=== PATIENT | female | born 1945 | race Caucasian/White ===

== ENCOUNTER 2016-12-19 06:17 | Inpatient (IN) | payer OTHER, BC ==
[2016-12-13 11:35] VITALS: BMI 38.4
[~2016-12-19 06:17] MED LIST: PANTOPRAZOLE 40 MG TABLET (FP) PO ONE
[2016-12-19] MEDS ORDERED: GABAPENTIN 300 MG CAPSULE (FP) PO ONE (06:30)
[2016-12-19] MEDS ORDERED: ROPIVICAINE 0.2%/MORPH PF/KETOROLAC - 51ML DISP.SYRINGE IA ONE ×4 (06:30→12:09)
[2016-12-19] MEDS ORDERED: TRANEXAMIC ACID 1000 MG/10 ML VIAL IVPUSH ONE (06:30)
[2016-12-19] MEDS ORDERED: oxyCODONE HCL 10 MG SUSTAINED ACTING TABLET PO ONE (06:30)
[2016-12-19] MEDS ORDERED: CEFAZOLIN 2 GM in DEXTROSE 5%-WATER - 50 ML IVPB ONE (06:30)
[2016-12-19] MEDS ORDERED: CELECOXIB 200 MG CAPSULE PO ONE (06:30)
[2016-12-19] MEDS ORDERED: PANTOPRAZOLE 40 MG TABLET (FP) ONE (06:32)
[2016-12-19] MEDS ORDERED: ceFAZolin SODIUM 1 GM VIAL ONE (07:13)
[2016-12-19] MEDS ORDERED: VANCOMYCIN 1,000 MG VIAL (RESTRICTED TO ID ONLY) ONE (07:13)
[2016-12-19] MEDS ORDERED: BUPIVACAINE HCL/PF 2.5 MG/ML - 30 ML VIAL IJ ONE (07:29)
[2016-12-19] MEDS ORDERED: MIDAZOLAM HCL 2 MG/2 ML SINGLE DOSE VIAL ONE (07:29)
[2016-12-19] MEDS ORDERED: DEXAMETHASONE SOD PHOSPHATE/PF 10 MG/ML SDV ONE (07:29)
--- NOTE | 2016-12-19 07:54 | HP ---
Admitting History and Physical - Admission Chief Complaint: right knee OA History of Present Illness: 71yo female with right knee OA. Had right ARMINDA last year and did well. PT after hip replacement was limited by knee pain from arthritis. Was treated with NSAIDs and injections but continued to have pain and ambulatory dysfunction. Indicated for right TKA. History Source: Patient, Medical Record Limitations to Obtaining History: No Limitations - Past Medical History ...: No Endocrine: Yes: Hypothyroidism - Past Surgical History Past Surgical History: Yes: Joint Replacement - Smoking History Smoking history: Former smoker Have you smoked in the past 12 months: No If you are a former smoker, when did you quit?: 25 YEARS AGO - Alcohol/Substance Use Hx Alcohol Use: No - Social History ADL: Independent Home Medications - Allergies Allergies/Adverse Reactions: Allergies Allergy/AdvReac Type Severity Reaction Status Date / Time Penicillins Allergy Severe UNKNOWN- Verified 12/13/16 11:27 A CHILD shellfish derived Allergy Severe Swelling Verified 12/13/16 11:27 procaine HCl [From Novocain] AdvReac Severe PALPITATION Verified 12/19/16 07:12 S - Home Medications Home Medications: Ambulatory Orders Thyyrostim 1 tab PO DAILY 01/04/16 Multivitamins [Multivit ([facility] Formulary)] 1 tab PO DAILY 01/22/16 Cholecalciferol (Vitamin D3) [Vitamin D3 -] 1,000 unit PO DAILY 12/19/16 Ciprofloxacin HCl [Cipro] 500 mg PO BID 12/19/16 Magnesium 250 mg PO DAILY 12/19/16 Mv, Min #36/Iron,Carbonyl/FA [Geritol Complete Tablet] 1 each PO ASDIR 12/19/16 Physical Examination Vital Signs: Vital Signs Temperature 98 F 12/19/16 06:58 Pulse Rate 80 12/19/16 06:58 Respiratory Rate 18 12/19/16 06:58 Blood Pressure 132/82 12/19/16 06:58 O2 Sat by Pulse Oximetry (%) Constitutional: Yes: Well Nourished, No Distress Eyes: Yes: WNL, Conjunctiva Clear, EOM Intact HENT: Yes: WNL, Atraumatic, Normocephalic Neck: Yes: WNL Cardiovascular: Yes: WNL, Regular Rate and Rhythm Respiratory: Yes: WNL, Regular Gastrointestinal: Yes: WNL, Soft ...Rectal Exam: Yes: Deferred Renal/: Yes: WNL Musculoskeletal: Yes: Joint Stiffness, Joint Swelling Extremities: Yes: WNL Edema: No Peripheral Pulses WNL: Yes Integumentary: Yes: WNL Neurological: Yes: WNL, Alert, Oriented ...Motor Strength: WNL Psychiatric: Yes: WNL, Alert, Oriented Labs: Reviewed in chart Imaging - Results X-ray: Image Reviewed Problem List - Problems (1) Osteoarthritis of right knee Code(s): M17.11 - UNILATERAL PRIMARY OSTEOARTHRITIS, RIGHT KNEE Qualifiers: Osteoarthritis type: primary Qualified Code(s): M17.11 - Unilateral primary osteoarthritis, right knee Assessment/Plan 71yo female with severe right knee OA for right TKA
[2016-12-19] MEDS ORDERED: ONDANSETRON 4 MG/2 ML VIAL ONE (08:02)
[2016-12-19] MEDS ORDERED: PROPOFOL 20 ML ONE ×4 (08:02→11:46)
[2016-12-19] MEDS ORDERED: TRANEXAMIC ACID 1000 MG/10 ML VIAL ONE (08:02)
[2016-12-19] MEDS ORDERED: DEXAMETHASONE SOD PHOSPHATE 4 MG/1 ML VIAL ONE (08:02)
[2016-12-19] MEDS ORDERED: BUPIVACAINE HCL/PF 0.5% (5MG/ML) 10 ML VIAL ONE (08:04)
[2016-12-19] MEDS ORDERED: CIPROFLOXACIN 400 MG/D5W 200 ML IVPB ONE (08:10)
[2016-12-19] MEDS ORDERED: ePHEDrine SULFATE 50 MG/1 ML AMPULE ONE (09:53)
[2016-12-19] MEDS ORDERED: TRANEXAMIC ACID 1000 MG/10 ML VIAL IVPB ONE ×2 (10:05→11:47)
[2016-12-19] MEDS ORDERED: VANCOMYCIN 1,000 MG VIAL (RESTRICTED TO ID ONLY) IVPB ONE ×2 (10:11→11:47)
--- NOTE | 2016-12-19 12:41 | OP ---
Operative Note - Note: Operative Date: 12/19/16 Pre-Operative Diagnosis: right knee OA Operation: right TKA Post-Operative Diagnosis: Same as Pre-op Surgeon: Get Martini Tube Machine Operator Helper: Maryanne Bergeron Anesthesia: Spinal Estimated Blood Loss (mls): 100
[2016-12-19] MEDS ORDERED: MAG HYDROX/AL HYDROX/SIMETH 30 ML UNIT-DOSE CUP PO PRN (12:47)
[2016-12-19] MEDS ORDERED: MAGNESIUM HYDROX 2400MG/30ML ORAL SUSPENSION 30 ML CUP PO PRN (12:47)
[2016-12-19] MEDS ORDERED: ONDANSETRON 4 MG/2 ML VIAL IVPB PRN (12:47)
[2016-12-19] MEDS ORDERED: PROMETHAZINE HCL 25 MG/1 ML VIAL IVPUSH PRN (12:49)
[2016-12-19] MEDS ORDERED: oxyCODONE HCL 5 MG TABLET PO PRN ×2 (12:49)
[2016-12-19] MEDS ORDERED: ONDANSETRON 4 MG/2 ML VIAL IVPUSH PRN (12:49)
[2016-12-19] MEDS ORDERED: LACTATED RINGERS SOLUTION 1,000 ML IV SCH (13:00)
[2016-12-19] MEDS ORDERED: traMADol HCL 50 MG TABLET PO SCH (13:00)
[2016-12-19] MEDS: ACETAMINOPHEN 1000 MG/100 ML VIAL (NON FORMULARY) IVPB ONE ×2 (13:00→16:24)
[2016-12-19] MEDS ORDERED: KETOROLAC TROMETHAMINE 30 MG/1 ML VIAL IVPUSH SCH (13:00)
--- NOTE | 2016-12-19 13:14 | SPEC ---
DATE OF OPERATION: 12/18/2016 PREOPERATIVE DIAGNOSIS: Right knee osteoarthritis. POSTOPERATIVE DIAGNOSIS: Right knee osteoarthritis. PROCEDURE: Right total knee replacement. ATTENDING: Rahat Razo MD SPUN PASTE MACHINE OPERATOR: CAITLIN Ruvalcaba ANESTHESIA: Spinal plus sedation. ESTIMATED BLOOD LOSS: 100 mL. COMPLICATIONS: None. SPECIMENS SENT: Resected bone was sent for pathology analysis. DISPOSITION: The patient was transferred to the PACU in stable condition. IMPLANTS USED: Tristen Triathlon size 4 femoral component, size 5 tibial component. Because bone quality was found to be soft, a 50-mm stem was placed on both the femoral and tibial components, 11-mm total polyethylene components, 32-mm patellar component. INDICATIONS: This is a 71-year-old female who is a longstanding patient of mine who had a history of right total knee replacement 1 year ago. The patient also had right knee osteoarthritis and was treated conservatively with medications, injection, and physical therapy. The knee continued to be painful and was limiting her rehabilitation of her hip replacement. Because of her ambulatory dysfunction, she was indicated for a total knee replacement. The risks, benefits, and alternatives to the procedure were explained to the patient in great detail, and she elected to proceed with the surgery. DESCRIPTION OF PROCEDURE: On the day of surgery, the patient was taken to the operating room and placed on the OR table. Spinal anesthesia was administered by the anesthesiologist. The patient was then positioned supine on the table and all bony prominences were padded. A nonsterile tourniquet was placed on the proximal thigh. The knee was then prepped and draped in the usual sterile fashion and intravenous antibiotics were given for infection prophylaxis. A surgical time-out was then performed with the team, and the patients identity, procedure, side, availability of implants, and the administration of antibiotics was confirmed. The leg was then elevated and exsanguinated, and the tourniquet was inflated. With the knee flexed, a midline incision was made and carried down through the subcutaneous fat to the underlying retinaculum. A medial parapatellar arthrotomy was performed. This was followed by a subperiosteal dissection of the tissue off the proximal, medial tibia. A portion of fat pad was removed from under the patellar tendon, and a small portion of fat was excised off the distal supracondylar femur. The knee was then flexed further and the anterior horn of the lateral meniscus was released from the midline. Next, the anterior and posterior cruciate ligaments were transected. Osteophytes were removed from both the femur and tibia. Grade 4 changes were noted diffusely throughout the knee. Hohmann retractors were then placed around the distal femur. The starting drill was used to enter the intramedullary canal. The starting point had been chosen by checking the radiographs and anatomy. Proper alignment and intramedullary placement was then confirmed by placing the long narrow janet into the femur. Next, the distal femoral cutting guide was adjusted to 6 degrees of valgus and pinned to the femur. The bone resection was assessed using an caleb-wing. An approximately 10mm distal cut was made and the cut pieces measured. Once this was complete, the sizing guide was used to determine which size femoral component should be used. Next, the appropriately sized 4-in-1 cutting block was then placed at the correct amount of external rotation and the caleb wing was used to assure that there would be no notching of the anterior cortex of the femur. Once this was done, Hohmann retractors were used to protect the medial and lateral collateral ligaments, and all appropriate bone cuts were made. After bone cuts were made, the trabecular bone quality was found to be very soft and easily deformable. For this reason, we opted to use Triathlon TS components and place a short stem on both the femoral and tibial components for additional fixation strength. Attention was then turned to the tibia. Hohmann retractors were used to translate the tibia anteriorly and protect the collateral ligaments. The medial and lateral menisci were removed. The extramedullary tibial alignment guide was then placed and adjusted for rotation, varus/valgus, and slope. The height of the cutting block was adjusted to the level of the desired bone resection and then pinned in place. The proximal tibia was then cut with a saw and the bone was removed and measured. Once this was completed, trial components were placed and the knee was taken through a full range of motion. Soft tissue balance was assessed in both flexion and extension and found to be appropriate. The knee was stable throughout the full range of motion. The knee was then put into extension and the patella everted. The synovium around the patella was circumscribed with electrocautery. A caliper was used to measure the patellar thickness and a saw was then used to resect the patella at the chondro-osseous junction. The cut surface was then sized and drilled for the appropriate patellar button, with care taken to medialize it. A trial patella was then placed and the knee was again taken through a full range of motion. The knee was found to have both good balance and good patellar tracking. All of the components were removed except the tibial base plate. The appropriate instrumentation was used to drill and punch the proximal tibia for the keel of the final component. All bony surfaces were then cleaned with pulsatile lavage and dried. Bone cement was then prepared on the back table, and final components were cemented in place in the usual fashion. After final components were placed, a 3-minute dilute Betadine lavage was performed according to the [place] protocol. Following this, the wound was thoroughly irrigated with normal saline via pulsatile lavage, and wound closure was begun. Extruded cement was removed. The polyethylene trial was placed, the knee was put into extension, and axial pressure was applied for compression while the cement hardened. The patellar button was similarly cemented into place. Once the cement had hardened, the knee was taken through a full range of motion to assess stability, balance, and patellar tracking. This was found to be optimal and the trial polyethylene was exchanged for the appropriately sized real implant. The wound was then thoroughly irrigated with normal saline. No. 1 Polysorb and 0 VLoc 180 barbed sutures were used to close the arthrotomy. No. 1 Polysorb and 2-0 Polysorb sutures were used in the subcutaneous tissues. The skin was closed using both 3-0 VLoc 90 suture in a running subcuticular fashion and SwiftSet skin adhesive. Once this was completed a sterile Aquacel dressing and compressive Kannan-wrap was applied. The tourniquet was then deflated and the patient was awakened and taken to the PACU in stable condition. RAHAT RAZO M.D. [id number]
[2016-12-19] MEDS: LACTATED RINGERS SOLUTION 1,000 ML IV SCH (16:25)
[2016-12-19] MEDS: CEFAZOLIN 2 GM/D5W 50 ML IVPB SCH (18:15)
[2016-12-19] MEDS: KETOROLAC TROMETHAMINE 30 MG/1 ML VIAL IVPUSH SCH (20:24)
[2016-12-19] MEDS: ACETAMINOPHEN 325 MG TABLET (FP) PO SCH (20:25)
[2016-12-19] MEDS: traMADol HCL 50 MG TABLET PO SCH (20:26)
[2016-12-19] MEDS: ASCORBIC ACID 500 MG TABLET (FP) PO SCH (21:33)
[2016-12-19] MEDS: CELECOXIB 200 MG CAPSULE PO SCH (21:33)
[2016-12-19] MEDS: CIPROFLOXACIN 250 MG TABLET (RESTRICTED TO ID) PO SCH (21:33)
[2016-12-19] MEDS: SENNOSIDES/DOCUSATE COMBO (SENNA PLUS) TABLET (UD) PO SCH (21:33)
[2016-12-19] MEDS: oxyCODONE HCL 10 MG SUSTAINED ACTING TABLET PO SCH (21:34)
[2016-12-19] MEDS: GABAPENTIN 300 MG CAPSULE (FP) PO SCH (21:34)
[2016-12-20] MEDS: KETOROLAC TROMETHAMINE 30 MG/1 ML VIAL IVPUSH SCH ×2 (01:31→09:00)
[2016-12-20] MEDS: ACETAMINOPHEN 325 MG TABLET (FP) PO SCH ×4 (01:33→21:48)
[2016-12-20] MEDS: traMADol HCL 50 MG TABLET PO SCH ×4 (01:33→21:47)
[2016-12-20] MEDS: CEFAZOLIN 2 GM/D5W 50 ML IVPB SCH (01:34)
[2016-12-20 07:40] LABS: MCH 29.3 pg (25.7-33.7); MCHC 33.4 g/dl (32.0-36.0); MEAN CELL VOLUME 87.8 fl (80-96); MEAN PLT VOLUME 7.9 fl (7.5-11.1); PLATELET COUNT 241 K/MM3 (134-434); RDW 12.3 % (11.6-15.6); WHITE BLOOD COUNT 13.1 K/mm3 (4.0-10.8)
[2016-12-20 08:20] LABS: ANION GAP 7 (8-16); CALCIUM 8.7 mg/dl (8.4-10.2); CO2 26 mmol/L (22-28); CREATININE 0.7 mg/dl (0.6-1.3); GLUCOSE,RANDOM 127 mg/dl (74-106)
[2016-12-20] MEDS: ASPIRIN 325 MG TABLET PO SCH (08:56)
[2016-12-20] MEDS: PANTOPRAZOLE 40 MG TABLET (FP) PO SCH (09:01)
[2016-12-20] MEDS: GABAPENTIN 300 MG CAPSULE (FP) PO SCH ×2 (09:01→21:47)
[2016-12-20] MEDS: oxyCODONE HCL 10 MG SUSTAINED ACTING TABLET PO SCH ×2 (09:01→21:46)
[2016-12-20] MEDS: SENNOSIDES/DOCUSATE COMBO (SENNA PLUS) TABLET (UD) PO SCH ×2 (09:01→21:47)
[2016-12-20] MEDS: CELECOXIB 200 MG CAPSULE PO SCH ×2 (09:01→21:47)
[2016-12-20] MEDS: MULTIVITAMINS (DAILY MVI) TABLET (FP) PO SCH (09:02)
[2016-12-20] MEDS: ASCORBIC ACID 500 MG TABLET (FP) PO SCH ×2 (09:02→21:47)
[2016-12-20] MEDS: CIPROFLOXACIN 250 MG TABLET (RESTRICTED TO ID) PO SCH ×2 (09:04→21:48)
--- NOTE | 2016-12-20 09:39 | PN ---
Progress Note (short form) - Note Progress Note: Anesthesia post op note. POD#1 S/p Right total knee replacement. VSS. Pain well controlled. No post anesthesia complication. signed off.
[2016-12-20] MEDS ORDERED: [UNRECOGNIZED DRUG - OTHER] PO SCH (10:00)
[2016-12-20] MEDS: LACTATED RINGERS SOLUTION 1,000 ML IV SCH (15:18)
--- NOTE | 2016-12-20 18:23 | PN ---
Progress Note (short form) - Note Progress Note: Pt seen and examined. Doing very well. AVSS Selected Entries 12/20/16 14:12 Temperature 98.1 F Pulse Rate 73 Respiratory 16 Rate Blood Pressure 132/63 Laboratory Tests 12/20/16 12/20/16 07:20 07:20 WBC 13.1 H Hgb 11.3 D Hct 33.7 D Plt Count 241 Sodium 134 L Potassium 4.5 Chloride 101 Carbon Dioxide 26 Anion Gap 7 L BUN 19 H D Creatinine 0.7 Random Glucose 127 H D Calcium 8.7 Gen: NAD, AAO RLE: c/d/i, NVID A/P 71yo female POD#1 s/p R TKA 1. PT/OOB 2. D/C in AM after PT - f/u in office in 10-14 days Problem List - Problems (1) Osteoarthritis of right knee Code(s): M17.11 - UNILATERAL PRIMARY OSTEOARTHRITIS, RIGHT KNEE Qualifiers: Osteoarthritis type: primary Qualified Code(s): M17.11 - Unilateral primary osteoarthritis, right knee
--- NOTE | 2016-12-20 18:41 | DS ---
Physical Examination Vital Signs: Vital Signs Temperature 98.1 F 12/20/16 14:12 Pulse Rate 73 12/20/16 14:12 Respiratory Rate 16 12/20/16 14:12 Blood Pressure 132/63 12/20/16 14:12 O2 Sat by Pulse Oximetry (%) 96 12/20/16 14:12 Labs: CBC, BMP 12/20/16 07:20 12/20/16 07:20 Discharge Summary Reason For Visit: RIGHT KNEE OSTEOARTHRITIS Current Active Problems Osteoarthritis of right knee (Acute) Procedures: Principal: Right TKA Hospital Course: Admitted for elective surgery. Procedure performed without complications. Pt received postoperative antibiotic prophylaxis and DVT ppx. Ambulated with physical therapy. Stable for discharge home with outpatient followup. Condition: Stable - Instructions Diet, Activity, Other Instructions: Dr. Martini - Knee Replacement Instructions Keep the Aquacel dressing on until removed by Dr. Martini in 10-14 days - it is antibacterial and waterproof and you can shower with it on. Call the office for a follow-up appointment with Dr. Martini in 10-14 days. Take one Aspirin 325mg daily for 6 weeks to prevent blood clots in your legs. Take one Pantoprazole 40mg daily for 6 weeks to protect against heartburn and ulcers. Take Celebrex 200mg once daily for 30 days to reduce swelling and inflammation. Take a multivitamin, extra vitamin C supplement, and stool softener daily. For pain: *Mild pain (1-3/10): Take 1 Tramadol tablet every 4 hours as needed. Moderate pain (4-6/10): Take 1 Tramadol tablet and 1 Percocet tablet every 4 hours as needed. Severe pain (7-10/10): Take 1 Tramadol tablet and 2 Percocet tablets every 4 hours as needed. Activity: You can put as much weight on the operative leg as you want. Right after you get home, there will be a physical therapist coming to your house to help you walk around and bend/straighten your knee. After your follow-up appointment, you will be sent for more intensive outpatient physical therapy which will include machines and equipment that the home therapist cannot bring to your house. Always use a walker or cane for balance and to prevent falls. Disposition: VNS/HOME HEALTH CARE - Home Medications Comprehensive Discharge Medication List: Ambulatory Orders Thyyrostim 1 tab PO DAILY 01/04/16 Multivitamins [Multivit ([facility] Formulary)] 1 tab PO DAILY 01/22/16 Cholecalciferol (Vitamin D3) [Vitamin D3 -] 1,000 unit PO DAILY 12/19/16 Magnesium 250 mg PO DAILY 12/19/16 Mv, Min #36/Iron,Carbonyl/FA [Geritol Complete Tablet] 1 each PO ASDIR 12/19/16 Ascorbic Acid [Vitamin C -] 500 mg PO BID tablet 12/20/16 Aspirin [ASA -] 325 mg PO DAILY@0800 tablet 12/20/16 Celecoxib [CeleBREX -] 200 mg PO DAILY #30 tab 12/20/16 Multivitamins [Multivit ([facility] Formulary)] 1 tab PO DAILY tab 12/20/16 Oxycodone HCl/Acetaminophen [Percocet 5-325 mg Tablet] 1 - 2 tab PO Q4H PRN #60 tablet MDD 8 12/20/16 Pantoprazole Sodium [Protonix -] 40 mg PO DAILY #40 tab 12/20/16 Sennosides/Docusate Sodium [Pericolace -] 2 tablet PO BID tablet 12/20/16 Tramadol HCl [Ultram -] 50 mg PO Q4H PRN #90 tablet MDD 6 12/20/16
[2016-12-20] MEDS ORDERED: PT OWN MED DRAWER 7, Y5N ONE (21:24)
[2016-12-21] MEDS: ACETAMINOPHEN 325 MG TABLET (FP) PO SCH ×2 (02:00→08:22)
[2016-12-21] MEDS: traMADol HCL 50 MG TABLET PO SCH ×2 (02:00→08:22)
[2016-12-21 06:11] VITALS: BP 132/48; PULSE 73; TEMP 98.6
[2016-12-21 08:04] LABS: MCHC 33.8 g/dl (32.0-36.0); MEAN CELL VOLUME 85.9 fl (80-96); MEAN PLT VOLUME 7.9 fl (7.5-11.1); PLATELET COUNT 179 K/MM3 (134-434); RDW 12.6 % (11.6-15.6)
[2016-12-21] MEDS: ASPIRIN 325 MG TABLET PO SCH (08:23)
[2016-12-21 08:30] LABS: ANION GAP 7 (8-16); CALCIUM 8.4 mg/dl (8.4-10.2); CO2 23 mmol/L (22-28); CREATININE 0.7 mg/dl (0.6-1.3); GLUCOSE,RANDOM 89 mg/dl (74-106)
[2016-12-21] MEDS ORDERED: PT OWN MED DRAWER 7, Y5N ONE (10:25)
[2016-12-21] MEDS: CIPROFLOXACIN 250 MG TABLET (RESTRICTED TO ID) PO SCH (10:32)
[2016-12-21] MEDS: CELECOXIB 200 MG CAPSULE PO SCH (10:33)
[2016-12-21] MEDS: GABAPENTIN 300 MG CAPSULE (FP) PO SCH (10:33)
[2016-12-21] MEDS: oxyCODONE HCL 10 MG SUSTAINED ACTING TABLET PO SCH (10:34)
[2016-12-21] MEDS: MULTIVITAMINS (DAILY MVI) TABLET (FP) PO SCH (10:34)
[2016-12-21] MEDS: SENNOSIDES/DOCUSATE COMBO (SENNA PLUS) TABLET (UD) PO SCH (10:34)
[2016-12-21] MEDS: ASCORBIC ACID 500 MG TABLET (FP) PO SCH (10:34)
[2016-12-21] MEDS: PANTOPRAZOLE 40 MG TABLET (FP) PO SCH (10:34)
--- NOTE | 2016-12-23 10:07 | PATH ---
Surgical Pathology Report Patient Name: ERIN QUINTERO Med. Rec. #: [id number] /Age/Gender: 1945 (Age: 71) / F Account: [id number] Location: [facility] MED-SURG Taken: 12/19/2016 Received: 12/19/2016 Reported: 12/23/2016 Physicians: Get Martini M.D. Specimen(s) Received RIGHT KNEE BONE Clinical History Right knee osteoarthritis Final Diagnosis BONE AND SOFT TISSUE, RIGHT KNEE, REPLACEMENT: DEGENERATIVE JOINT DISEASE. Electronically Signed Conner Simeon M.D. Gross Description Received in formalin labeled "right knee bones," is a 12.0 x 10.0 x 1.5 cm aggregate of multiple collins, irregular portions of bone and soft tissue, consistent with knee bones. There is a 1.8 cm greatest dimension area of eburnation identified. The remaining articular surfaces are collins-yellow and diffusely granular. The underlying trabecular bone is yellow and hard. Field Pipelines Supervisor sections are submitted in one cassette, following decalcification. 12/20/2016 [facility]12/20/2016
== END 2016-12-21 12:35 | disposition home health service (06) | DRG 470 ==
LOC: FM/S 06:17
PROVIDERS: ADMIT Student in an Organized Health Care Education/Training Program; ATTEND Student in an Organized Health Care Education/Training Program
PROC: 0SRC0J9 Replacement of Right Knee Joint with Synthetic Substitute, Cemented, Open Approach (ICD-10-PCS; principal; 2016-12-18)
DX: M17.11 Unilateral primary osteoarthritis, right knee (principal); Z87.891 Personal history of nicotine dependence; E03.9 Hypothyroidism, unspecified; E66.9 Obesity, unspecified; Z68.38 Body mass index [BMI] 38.0-38.9, adult
CPT/HCPCS: 36415; 73560-TC-RT; 80048; 85027; 88304-TC; 88311-TC; 94010; 94760; 97116-GP; 97162-GP